=== PATIENT | female | born 1950 | race Caucasian/White ===

== ENCOUNTER 2016-07-10 09:45 | Inpatient (IN) | payer BC, MEDICARE ==
[~2016-07-10] VITALS: Ht 177.8 cm; Wt 98.2 kg
[~2016-07-10 09:45] MED LIST: ACIPHEX20 MG PO; AMBIEN 10MG10 MG PO; ARCAPTA NEOHAL75 MCG IH; ASCRIPTIN1 TAB PO; ASPIRIN 32325 MG/TAB PO; CAMPRAL333 MG PO; CLOPIDOGREL; COREG 25MG25 MG/TAB PO; COREG12.5 MG PO; COZAAR100 MG PO; CPAP; CRESTOR; CRESTOR PO; DEMADEX 20MG20 M1 PO; DEMADEX 20MG20 MG PO; FLUTICASON0.05 MG/Ac NS; FOLIC ACID; FOLIC ACID PO; KLONOPIN 0.5MG0.5 MG PO; LASIX40 MG PO; LEVOFLOXACIN; LISINOPRIL/HCTZ1 TA1 PO; LOVAZA1 GM PO; MAG-OX 400400 MG PO; MAGNESIUM OXIDE PO; MICRO-K 10 EXT10 MEQ PO; MICRO-K 1010 MEQ PO; MILK OF MA400 MG/51 PO; NALTREXONE50 MG PO; NITROQUICK0.4 MG SL; OXYGEN; PAROXETINE30 MG PO; PAXIL 10MG10 MG PO; PAXIL 30MG30 MG; PERCR 7.5 PO; POTASSIUM CH2 MEQ/ML PO; PRADAXA 150MG150 MG PO; PREMARIN 0.9MG0.9 MG PO; RT SPIRIVA18 MCG IH; THEO-24 20200 MG/CAP PO; THEO-DUR 200200 MG PO; TIKOSYN0.5 MG PO; TOPROL XL 25MG25 MG PO; TOPROL XL100 MG PO; ULTRAM 50MG TAB50 MG PO; WARFARIN SODIUM6 MG PO; XARELTO20 MG PO; ZETIA10 MG PO; ZOCOR 10MG10 MG PO
[2016-09-12 18:47] LABS: HIV 1/2 Antibodies Non-Reactive; HIV-1p24 Antigen Non-Reactive
[2016-09-13 18:05] LABS: HEPATITIS B SURFACE AB-QL Negative (())
[2016-09-15] VITALS (10 sets, daily range): BP systolic 111–153; BP diastolic 61–88; PULSE 79–87; TEMP 97.6–98.7
[2016-09-15] MEDS ORDERED: NORCO 325 MG-51 TAB PO (06:22)
[2016-09-15] MEDS ORDERED: MAG-OX 400400 MG/TAB PO (10:06)
[2016-09-15 15:18] LABS: MEAN CELL VOLUME 99 fl (80.0-100.0); MEAN CORPUSCULAR HGB CONC 31 g/dl (33.0-37.0); MEAN PLATELET VOLUME 9.6 fl (7.4-10.4); PLATELET COUNT 126 K/mm3 (130-400); RED BLOOD COUNT 3.33 M/mm3 (4.10-5.30); REDCELL DISTRIBUTION WIDTH-CV 15.8 % (11.5-14.5); WHITE BLOOD COUNT 6.4 K/mm3 (4.8-10.8)
[2016-09-15 15:19] LABS: HEMATOCRIT 32.8 % (37.0-47.0); HEMOGLOBIN 10.2 g/dl (12.5-16.0); MEAN CORPUSCULAR HEMOGLOBIN 31 pg (27.0-31.0)
[2016-09-15 15:26] LABS: CALCIUM 9.2 mg/dL (8.4-10.2); CREATININE, serum 0.66 mg/dL (0.52-1.25); MAGNESIUM 2.1 mg/dL (1.6-2.3); PHOSPHOROUS 3.5 mg/dL (2.5-4.5); POTASSIUM 4.7 mmol/L (3.4-5.0)
[2016-09-15 15:44] LABS: TROPONIN-I 0.091 ng/mL (0.000-0.034)
[2016-09-16] VITALS (7 sets, daily range): BP systolic 130–145; BP diastolic 61–85; PULSE 64–85; TEMP 97.4–98.8
[2016-09-16 07:13] LABS: MEAN CELL VOLUME 98 fl (80.0-100.0); MEAN CORPUSCULAR HGB CONC 31 g/dl (33.0-37.0); MEAN PLATELET VOLUME 9.4 fl (7.4-10.4); PLATELET COUNT 148 K/mm3 (130-400); RED BLOOD COUNT 3.23 M/mm3 (4.10-5.30); REDCELL DISTRIBUTION WIDTH-CV 15.7 % (11.5-14.5); WHITE BLOOD COUNT 7.9 K/mm3 (4.8-10.8)
[2016-09-16 07:15] LABS: HEMATOCRIT 31.7 % (37.0-47.0); HEMOGLOBIN 9.8 g/dl (12.5-16.0); MEAN CORPUSCULAR HEMOGLOBIN 30 pg (27.0-31.0)
[2016-09-16 07:43] LABS: CALCIUM 8.8 mg/dL (8.4-10.2); CREATININE, serum 0.97 mg/dL (0.52-1.25); POTASSIUM 4.3 mmol/L (3.4-5.0)
[2016-09-17 03:48] VITALS: BP 135/69; PULSE 90; TEMP 98
[2016-09-17 07:22] VITALS: BP 127/76; PULSE 81; TEMP 98.1
[2016-09-17 08:05] LABS: HEMATOCRIT 28.2 % (37.0-47.0)
[2016-09-17] MEDS ORDERED: LOPRESSOR 225 MG/TAB PO (08:20)
[2016-09-17] MEDS ORDERED: TYLENOL 500MG500 MG PO (10:37)
[2016-09-17] MEDS ORDERED: XARELTO10 MG PO (10:49)
[2016-09-17] MEDS ORDERED: ROXICODONE 55 MG/TAB PO (10:50)
[2016-09-17] MEDS ORDERED: NORCO 325 MG-7.1 TAB PO (10:51)
[2016-09-17 11:47] VITALS: BP 126/54; PULSE 84; TEMP 97.5
== END 2016-09-17 14:00 | disposition home or self-care (01) | DRG 469 ==
LOC: JCC 09-15 05:17
PROVIDERS: Internal Medicine; Orthopaedic Surgery
PROC: 0SRD0J9 Replacement of Left Knee Joint with Synthetic Substitute, Cemented, Open Approach (ICD-10-PCS; principal; 2016-09-15 07:30)
DX: M17.12 Unilateral primary osteoarthritis, left knee (principal); I21.4 Non-ST elevation (NSTEMI) myocardial infarction; J96.11 Chronic respiratory failure with hypoxia; I10 Essential (primary) hypertension; I48.91 Unspecified atrial fibrillation; M25.512 Pain in left shoulder; K21.9 Gastro-esophageal reflux disease without esophagitis; J44.9 Chronic obstructive pulmonary disease, unspecified; Z95.0 Presence of cardiac pacemaker; Z95.5 Presence of coronary angioplasty implant and graft; Z87.891 Personal history of nicotine dependence; Z79.01 Long term (current) use of anticoagulants
CPT/HCPCS: 99222; 99232-AI; A4315; A9284; C1713; C1776; J0690; J1100; J1885; J2250; J2270; J2405; J2704; J7030; J7042

== ENCOUNTER 2016-10-31 12:45 | Outpatient (RCR) | payer BC, MEDICARE ==
[~2016-10-31 12:45] MED LIST changes: +LOPRESSOR 225 MG/TAB PO; +MAG-OX 400400 MG/TAB PO; +NORCO 325 MG-51 TAB PO; +NORCO 325 MG-7.1 TAB PO; +ROXICODONE 55 MG/TAB PO; +TYLENOL 500MG500 MG PO; +XARELTO10 MG PO
== END 2016-11-12 10:35 ==
LOC: WSPT 12:45
DX: M25.562 Pain in left knee (principal); Z96.652 Presence of left artificial knee joint
CPT/HCPCS: G8978-GP; G8979-GP

== ENCOUNTER → 2017-04-10 | Outpatient (CLI) | payer BC | LOC: MC.RAD 14:40 | DX: Z12.31 Encounter for screening mammogram for malignant neoplasm of breast (principal) ==

== ENCOUNTER → 2018-10-14 | Outpatient (CLI) | payer MEDICARE, OTHER | LOC: MC.RAD 15:00 | DX: Z12.31 Encounter for screening mammogram for malignant neoplasm of breast (principal); R92.0 Mammographic microcalcification found on diagnostic imaging of breast ==

== ENCOUNTER → 2018-10-21 | Outpatient (CLI) | payer MEDICARE, OTHER | LOC: MC.RAD 14:00 | DX: R92.0 Mammographic microcalcification found on diagnostic imaging of breast (principal) ==

== ENCOUNTER 2019-03-15 09:28 | Day surgery (SDC) | payer MEDICARE, OTHER ==
[2019-03-15] VITALS (9 sets, daily range): BP systolic 90–12123; BP diastolic 5–60; PULSE 59–78; TEMP 97.6
[~2019-03-15] VITALS: Ht 177.8 cm; Wt 95.8 kg
[2019-03-15] MEDS ORDERED: REMERON30 MG PO (09:59)
[2019-03-15] MEDS ORDERED: ALDACTONE 25MG25 M1 PO (10:00)
[2019-03-15] MEDS ORDERED: LASIX 20MG TABL20 MG PO (10:01)
[2019-03-15] MEDS ORDERED: LANOXIN 0.120.125 MG PO (10:01)
[2019-03-15 10:48] LABS: MEAN CELL VOLUME 91 fl (80.0-100.0); MEAN CORPUSCULAR HGB CONC 30 g/dl (33.0-37.0); MEAN PLATELET VOLUME 8.9 fl (7.4-10.4); PLATELET COUNT 179 K/mm3 (130-400)
[2019-03-15 10:52] LABS: HEMATOCRIT 28.3 % (37.0-47.0); HEMOGLOBIN 8.6 g/dl (12.5-16.0); MEAN CORPUSCULAR HEMOGLOBIN 28 pg (27.0-31.0)
[2019-03-15 10:55] LABS: INR 1.4 (0.8-3.0); PROTHROMBIN TIME 16.5 SECONDS (9.7-12.8)
[2019-03-15] MEDS ORDERED: NORVASC 5MG5 MG/TAB PO (11:01)
[2019-03-15 11:03] LABS: CALCIUM 8.7 mg/dL (8.4-10.2); CREATININE, serum 1.17 (0.52-1.25); POTASSIUM 5.2 mmol/L (3.4-5.0)
--- NOTE | 2019-03-15 12:38 | NUR ---
ANCEF CLEARED BY PHARMACY AND OK TO GIVE PER TISHA. SEE MERGE REPORT FOR MEDICATION ADMINISTRATION TIMES WELL INTRA/POST SEDATION ASSESSMENTS.
--- NOTE | 2019-03-15 13:15 | NUR ---
Back from Cath labe post generator change. Dressing left upper CD&I. VSS. bedside
[2019-03-15] MEDS ORDERED: DEMADEX 20MG20 M1 PO (13:42)
--- NOTE | 2019-03-15 15:28 | NUR ---
Discharge instructions given and transferred to private car by maritza
--- NOTE | 2019-03-15 15:47 | NUR ---
INT discontinued intact. Ambulated to bathroom with steady gait.
== END 2019-03-15 15:28 | disposition home or self-care (01) ==
LOC: COL.CAR 09:28
PROVIDERS: Internal Medicine Cardiovascular Disease
DX: T82.191A Other mechanical complication of cardiac pulse generator (battery), initial encounter (principal); I48.0 Paroxysmal atrial fibrillation; I11.9 Hypertensive heart disease without heart failure; I43 Cardiomyopathy in diseases classified elsewhere; I08.1 Rheumatic disorders of both mitral and tricuspid valves; J44.9 Chronic obstructive pulmonary disease, unspecified; E78.5 Hyperlipidemia, unspecified; Z79.891 Long term (current) use of opiate analgesic; Z79.899 Other long term (current) drug therapy
CPT/HCPCS: C1785; J0690; J2250; J3010; J7030

== ENCOUNTER 2023-11-10 10:21 | Day surgery (SDC) | payer MEDICARE, OTHER ==
[~2023-11-10] VITALS: Ht 177.8 cm; Wt 73.6 kg
[~2023-11-10 10:21] MED LIST changes: +ALDACTONE 25MG25 M1 PO; +LANOXIN 0.120.125 MG PO; +LASIX 20MG TABL20 MG PO; +LR 1,000 ML IV SCH; +NORVASC 5MG5 MG/TAB PO; +Ondansetron 4 MG/2 ML VIAL IV PRN; +REMERON30 MG PO
[2023-11-10] MEDS ORDERED: Glycopyrrolate 0.2 MG/ML 1 ML VIAL ONE (12:05)
[2023-11-10] MEDS ORDERED: Lidocaine PF 2% (20 MG/ML) 5 ML VIAL ONE (12:05)
[2023-11-10] MEDS ORDERED: BROVANA15 MCG/2 M IH (12:13)
[2023-11-10] MEDS ORDERED: LIPITOR 80MG80 MG PO (12:14)
[2023-11-10] MEDS ORDERED: YUPELRI175 MCG/3 IH (12:15)
[2023-11-10] MEDS ORDERED: PLAVIX 75MG TAB75 MG PO (12:17)
[2023-11-10] MEDS ORDERED: FARXIGA10 PO (12:24)
[2023-11-10] MEDS ORDERED: NORCO 325 MG-101 TAB PO (12:26)
[2023-11-10] MEDS ORDERED: PAXIL40 MG PO (12:28)
[2023-11-10] MEDS ORDERED: DEMADEX10 MG PO (12:31)
[2023-11-10] MEDS ORDERED: ULTRAM ER100 MG PO (12:33)
[2023-11-10] MEDS ORDERED: ALBUTEROL0.83 MG/ML IH (12:41)
[2023-11-10] MEDS ORDERED: ASPIRIN E.C. 8181 MG PO (12:42)
[2023-11-10] MEDS ORDERED: ANORO IH (12:42)
[2023-11-10] MEDS ORDERED: HCTZ 25MG TAB25 MG PO (12:43)
[2023-11-10] MEDS ORDERED: CREON 36000 (12:43)
[2023-11-10] MEDS ORDERED: MAG-OX 400400 MG/TAB PO (12:44)
[2023-11-10] MEDS ORDERED: PREDNISONE20 MG PO (12:45)
[2023-11-10] MEDS ORDERED: MASON NATURAL2000 IU PO (12:46)
[2023-11-10 12:55] VITALS: BP 140/67; PULSE 82; TEMP 97.5
--- NOTE | 2023-11-10 12:59 | NUR ---
1054 ADMITTED TO [facility] Patient ambulatory from the waiting room to bay 1 with steady gait, breathing even and unlabored with 4 L O2 via NC. Pt is alert and oriented, accompanied by her . Consents reviewed and signed by the patient. IV established. LR infusion via gravity at KVO. Call light in reach. Warm blanket provided.
[2023-11-10 13:10] VITALS: BP 131/63; PULSE 83; TEMP 97.8
[2023-11-10 13:25] VITALS: BP 136/63; PULSE 84
[2023-11-10 13:40] VITALS: BP 136/61; PULSE 84
--- NOTE | 2023-11-10 14:27 | NUR ---
1310: Pt to bay 1 - ambulated from cart to bathroom to chair with standby assist 1317: pt tolerating po intake well 1345: pt verbalizes understanding discharge materials 1352: MD Philly in room with pt and 1425: pt escorted out via wheelchair with
== END 2023-11-10 14:25 | disposition home or self-care (01) ==
LOC: SDCO 10:21
DX: K22.2 Esophageal obstruction (principal); K29.70 Gastritis, unspecified, without bleeding; K21.00 Gastro-esophageal reflux disease with esophagitis, without bleeding; K22.89 Other specified disease of esophagus; G47.33 Obstructive sleep apnea (adult) (pediatric); R63.4 Abnormal weight loss; D64.9 Anemia, unspecified; J44.9 Chronic obstructive pulmonary disease, unspecified; I25.2 Old myocardial infarction; Z79.82 Long term (current) use of aspirin; Z99.81 Dependence on supplemental oxygen; Z98.890 Other specified postprocedural states; Z87.19 Personal history of other diseases of the digestive system; Z87.891 Personal history of nicotine dependence; Z79.01 Long term (current) use of anticoagulants; Z79.899 Other long term (current) drug therapy
CPT/HCPCS: J2704; J7120